=== PATIENT | female | born 1985 | race Caucasian/White ===

== ENCOUNTER 2022-09-02 13:16 | Outpatient (REF) | payer OTHER, SELFPAY ==
[2022-09-08 17:52] LABS: Acetylcholine Receptor Binding <0.30 nmol/L
[2022-09-10 14:17] LABS: Acetylcholine Recep Modulating 20
== END 2022-09-02 13:17 | disposition home or self-care (01) ==
LOC: HO.LAB 13:16
PROVIDERS: PCP Registered Nurse; Visit Provider Psychiatry & Neurology Neurology
DX: H02.409 Unspecified ptosis of unspecified eyelid (principal)
CPT/HCPCS: 36415; 83519